=== PATIENT | female | born 1965 ===

== ENCOUNTER 2020-05-17 08:27 | Emergency (ER) | payer MEDICAID ==
[~2020-05-17] VITALS: Ht 157.5 cm; Wt 108.7 kg
[2020-05-17] MEDS ORDERED: ACETAMINOPHEN 500 MG TABLET ONE (09:11)
[2020-05-17 09:33] LABS: BASOPHILS % (AUTO) 0 % (0-1); EOSINOPHILS % (AUTO) 0 % (1-7); LYMPHOCYTES % (AUTO) 17 % (22-44); MEAN CORPUSCULAR HGB CONC 32.9 g/dL (32.4-35.8); MEAN PLATELET VOLUME 8.9 fL (7.4-10.4); MONOCYTES % (AUTO) 9 % (2-9); NEUTROPHILS % (AUTO) 74 % (42-75); PLATELET COUNT 220 x10^3/uL (130-400); RED BLOOD COUNT 5.08 x10^6/uL (3.82-5.3)
[2020-05-17] MEDS ORDERED: ONDANSETRON 2MG/ML, 2ML ONE (09:37)
[2020-05-17] MEDS ORDERED: ONDANSETRON ODT 4 MG ONE (09:37)
[2020-05-17] MEDS ORDERED: MORPHINE SULFATE 4 MG/ML, 1ML ONE (09:37)
[2020-05-17 09:38] LABS: MD NO
--- NOTE | 2020-05-17 09:51 | NUR ---
"INFECTION IN MY KIDNEY'S" TANYA FLANK PAIN LEFT WORSE THAN RIGHT, PAIN WITH URINATION SEEN BY PMD ON PYRIDIUM AND CEFUROXIME W/O IMPROVEMENT. PT IN BED WITH CONT SPO2, BP Q 30 MIN, SIDE RAILS UP X2, CALL LIGHT IN REACH. WENT OVER PLAN OF CARE FROM ORDER LIST, AGREES TO PLAN.
[2020-05-17] MEDS ORDERED: ONDANSETRON 2MG/ML, 2ML IVPush ONE (10:00)
[2020-05-17] MEDS ORDERED: SODIUM CHLORIDE 0.9% 1,000ML IV ONE (10:00)
[2020-05-17] MEDS ORDERED: ACETAMINOPHEN 500 MG TABLET PO ONE (10:00)
[2020-05-17] MEDS ORDERED: MORPHINE SULFATE 4 MG/ML, 1ML IVPush PRN (10:00)
[2020-05-17 10:07] LABS: ALBUMIN 3.2 g/dL (3.4-5.0); CALCIUM 8.2 mg/dL (8.5-10.1); CREATININE 0.62 mg/dL (0.55-1.02)
[2020-05-17 10:18] LABS: ALKALINE PHOSPHATASE 76 U/L (45-117); ANION GAP 9 mmol/L (5-15); CHLORIDE 101 mmol/L (98-107); TOTAL PROTEIN 7.7 g/dL (6.4-8.2)
[2020-05-17 10:32] LABS: ALANINE AMINOTRANSFERASE 74 U/L (12-78); BILIRUBIN,TOTAL 0.6 mg/dL (0.2-1.0)
[2020-05-17 10:51] LABS: MICROSCOPIC AUTO
[2020-05-17] MEDS ORDERED: POTASSIUM CHLORIDE 20 MEQ TAB.ER.PRT PO ONE (11:00)
[2020-05-17] MEDS ORDERED: POTASSIUM CHLORIDE 20 MEQ TAB.ER.PRT ONE ×2 (11:08→11:11)
[2020-05-17] MEDS ORDERED: POTASSIUM CHLORIDE 20 MEQ in SODIUM CHLORIDE 0.9% 250 ML IV ONE (11:30)
[2020-05-17] MEDS ORDERED: OMNIPAQUE 350 MG/ML, 100ML BOTTLE ONE (11:48)
[2020-05-17 14:01] VITALS: BP 127/65
== END 2020-05-17 14:03 | disposition home or self-care (01) ==
LOC: ED 09:24
DX: R30.0 Dysuria (principal); R11.0 Nausea; M54.5 Low back pain; R50.9 Fever, unspecified; M79.10 Myalgia, unspecified site; R53.83 Other fatigue
CPT/HCPCS: 36415; 74177; 80053; 81001; 83605; 84145; 85025; 87040; 93005; 96361; 96365; 96366; 96375; 99285; J2270; J2405; J3480; J7030; J7050; Q9967

== ENCOUNTER 2020-07-22 10:56 | Emergency (ER) | payer MEDICAID ==
[~2020-07-22] VITALS: Ht 157.5 cm; Wt 106.0 kg
[2020-07-22] MEDS ORDERED: OXYcodone/APAP 5/325MG TABLET ONE (11:20)
[2020-07-22] MEDS ORDERED: KETOROLAC 30 MG/1 ML ONE (11:21)
--- NOTE | 2020-07-22 11:26 | NUR ---
pt medicated. bp lower 161/89
[2020-07-22] MEDS ORDERED: KETOROLAC 30 MG/1 ML IM ONE (11:30)
[2020-07-22] MEDS ORDERED: OXYcodone/APAP 5/325MG TABLET PO ONE (11:30)
--- NOTE | 2020-07-22 12:05 | NUR ---
xray, US, EKG done
--- NOTE | 2020-07-22 12:53 | NUR ---
pt states pain relief
[2020-07-22 13:35] VITALS: BP 142/93
--- NOTE | 2020-07-22 13:36 | NUR ---
pt d/cd with instructions
== END 2020-07-22 13:38 | disposition home or self-care (01) ==
LOC: ED 11:16
DX: M25.532 Pain in left wrist (principal); M79.632 Pain in left forearm; I48.92 Unspecified atrial flutter; I10 Essential (primary) hypertension
CPT/HCPCS: 73110; 93005; 93971; 96372; 99285; J1885